=== PATIENT | female | born 1940 | race African-American/Black ===

== ENCOUNTER → 2016-07-23 | Outpatient (CLI) | payer OTHER ==
[~2016-07-23] MED LIST: AMLODIPINE BESY10 MG PO; ARIMIDEX1 MG PO; ASPIRIN81 M2 PO; LANTUS100 U/ML SQ; LANTUS100 UNITS/ SUBQ; LIPITOR20 MG PO; LORTAB 7.51 TAB PO; MOBIC PO; PANTOPRAZOLE SO40 MG PO; PHENERGAN25 M1 PO; PLAVIX PO; PRINIVIL40 MG PO; SIMVASTATIN40 MG PO; VITAMIN D1000 UNIT PO; VITAMIN D50000 UNIT PO
--- NOTE | ~2016-07-23 | MY7 ---
[facility] A Service [facility] RADIOLOGY TEXT RESULTS PATIENT: BISI ZIMMER LOCATION: [facility] : 38 UNIT #: [id number] AGE: [address]: Anthony Muñiz MD SEX: F ORDER DR: [id number] [facility]. [place], [place] [address] [id number] O MR#: [id number] Acc #: [id number] NAME: BISI ZIMMER : 1940 SEX: F STUDY DATE/TIME: 07/23/2016 9:34 UNIT: [facility] ROOM: STUDY DESCRIPTION: MY Mammogram Dx Dig Lt Attending Physician: Anthony Muñiz M.D. Referring Physician: Anthony Muñiz M.D. Ordering Physician: Anthony Muñiz M.D. Primary Care Physician: Anthony Muñiz M.D. MEDICAL IMAGING REPORT This report is preliminary unless electronic signature is present EXAM Left digital diagnostic mammogram with CAD. COMPARISON Bilateral diagnostic mammogram and left breast ultrasound dated 10/23/15 as well as ultrasound-guided aspiration of the left breast dated 10/28/15 and other mammograms dated 10/21/14, 03/13/14, 09/10/13, 09/18/12, 08/23/12. INDICATIONS Patient 76-year-old female with a history of left breast cancer treated with lumpectomy in November 2012, without current complaints. The patient has a history of adjuvant left breast radiation. FINDINGS There are scattered fibroglandular densities in the left breast. There is stable postsurgical changes of the left breast. There are no suspicious findings in the left breast. IMPRESSION No mammographic evidence of malignancy in the left breast. Continued annual bilateral mammography is recommended which is next due in late October 2016. Results were discussed with the patient upon termination of today's exam. Patients over the age of 40 are entered into a reminder system with target due date for the next mammogram. BIRADS: 2 Benign finding. Dictated by... Steven Orta M.D. [facility] A Service of [facility] RADIOLOGY TEXT RESULTS PATIENT: BISI ZIMMER LOCATION: [facility] : 38 UNIT #: [id number] AGE: [address]: Anthony Muñiz MD SEX: F ORDER DR: THIS IS AN ELECTRONICALLY VERIFIED REPORT Steven Orta M.D. at 07/27/2016 7:44 AM IRENE/rocio TD: 07/23/2016 12:05 JOB #: [id number] MEDICAL IMAGING REPORT Page 1 of 1 COPY
== END | disposition home or self-care (01) ==
LOC: CMAM 09:07
DX: Z08 Encounter for follow-up examination after completed treatment for malignant neoplasm (principal); Z85.3 Personal history of malignant neoplasm of breast; Z98.890 Other specified postprocedural states
CPT/HCPCS: G0206